=== PATIENT | male | born 2000 ===

== ENCOUNTER 2022-06-09 18:15 | Emergency (ER) | payer SELFPAY ==
[2022-06-09 19:29] VITALS: BP 164/101
== END 2022-06-10 01:30 | disposition left against medical advice (07) ==
LOC: ED 18:15
DX: T56.1X1A Toxic effect of mercury and its compounds, accidental (unintentional), initial encounter (principal); Z53.21 Procedure and treatment not carried out due to patient leaving prior to being seen by health care provider